=== PATIENT | female | born 1970 | race Caucasian/White ===

== ENCOUNTER 2016-10-27 07:01 | Emergency (ER) | payer OTHER ==
--- NOTE | 2016-10-27 20:36 | EDPHY ---
H & P HPI/ROS: HPI CHIEF COMPLAINT: Right ear pain HISTORY OF PRESENT ILLNESS: This patient is a very pleasant year old female, she presents emergency room with right ear pain times 24 hours. She states over the past 2 months she has had some difficulty with both for years with decreased hearing, and some mild pain both of her ears. Right worse than left. However last 24 hours she has had worsening right ear pain. She denies sore throat, fever, vomiting. Past Medical History: Hypertension Past Surgical History: denies any surgical history Social History: denies daily use of drugs alcohol tobacco products Family History: noncontributory ROS REVIEW OF SYSTEMS: A comprehensive 10 point review of systems is otherwise negative aside from elements mentioned in the history of present illness. Exam Constitutional triage nursing summary reviewed, vital signs reviewed, awake/ alert. Eyes normal conjunctivae and sclera, EOMI, PERRLA. HENT right ear canal shows cerumen impaction, unable to visualize TM, left TM clear, posterior pharynx normal, normal inspection, atraumatic, moist mucus membranes, no epistaxis, neck supple/ no meningismus, no raccoon eyes. Respiratory clear to auscultation bilaterally, normal breath sounds, no respiratory distress, no wheezing. Cardiovascular rate normal, regular rhythm, no murmur, no edema, distal pulses normal. Gastrointestinal soft, non-tender, no rebound, no guarding, normal bowel sounds, no distension, no pulsatile mass. Genitourinary no CVA tenderness. Musculoskeletal no midline vertebral tenderness, full range of motion, no calf swelling, no tenderness of extremities, no meningismus, good pulses, neurovascularly intact. Skin pink, warm, & dry, no rash, skin atraumatic. Neurologic awake, alert and oriented x 3, AAOx3, moves all 4 extremities equally, motor intact, sensory intact, CN II-XII intact, normal cerebellar, normal vision, normal speech. Psychiatric normal mood/affect. Heme/Lymph/Immune no lymphadenopathy. Differential Diagnosis: includes but is not limited to in a particular order: cerumen impaction, otitis media, TM irritation from cerumen Medical Decision Making: plan for this patient irrigate right ear and then better evaluate right TM. Re-evaluation: [id number]: Re-evaluation at this time this patient had her right ear canal irrigated out the ear wax has been removed. She tells me her pain is resolved. She tells me she also can hear better. She feels much better. No evidence of otitis media on exam. TM intact. I do recommend she follows up with ENT. Recommend refraining from putting Q- tips in her ear canal. Take ibuprofen for pain control Flonase for decongestion. Source: Patient - Personal History Tetanus Vaccine Date: 3-4 years ago - Medical/Surgical History Hx Asthma: No Hx Chronic Respiratory Disease: No Hx Diabetes: No Hx Cardiac Disease: No Hx Renal Disease: No Hx Cirrhosis: No Hx Alcoholism: No Hx HIV/AIDS: No Hx Splenectomy or Spleen Trauma: No - Social History Smoking Status: Never smoked Allergies/Adverse Reactions: No Known Allergies Allergy (Unverified 02/03/11 08:55) Home Medications: Medication Instructions Recorded Lisinopril 80 mg PO .DAILY 02/03/11 Aspirin/Acetaminophen/Caffeine 1 each PO BID PRN 06/26/15 [EXCEDRIN EXTRA STRENGTH CAPLET] Doxylamine Succinate [Unisom] 25 mg PO HS 06/26/15 Hydrochlorothiazide [HCTZ (*)] 25 mg PO DAILY 06/26/15 Sertraline HCl [Zoloft 50mg (*)] 50 mg PO DAILY 06/26/15 Hydrocodone/APAP 5/325 [[place] 1 - 2 tab PO Q4 PRN #40 tab 07/20/15 5/325 (*)] Ibuprofen [Motrin (*)] 600 mg PO Q6 #60 tab 07/20/15 Departure - Departure Disposition: Home, Routine, Self-Care Clinical Impression: Cerumen impaction Qualifiers: Laterality: right Qualified Code(s): H61.21 - Impacted cerumen, right ear Condition: Good Instructions: Cerumen Impaction (ED) Referrals: Jyothi Akins MD [Primary Care Provider] - As per Instructions Mimi Curry MD [Medical Doctor] - As per Instructions
== END 2016-10-27 07:30 | disposition home or self-care (01) ==
DX: H61.21 Impacted cerumen, right ear (principal); I10 Essential (primary) hypertension; Z79.82 Long term (current) use of aspirin